=== PATIENT | male | born 1990 | race Caucasian/White ===

== ENCOUNTER 2018-08-14 06:13 | Emergency (ER) | payer BC, MEDICAID ==
[~2018-08-14] VITALS: Ht 175.3 cm; Wt 65.8 kg
--- NOTE | 2018-08-14 06:35 | NUR ---
Dr. Priest at bedside for MSE.
--- NOTE | 2018-08-14 07:41 | NUR ---
Patient discharged to home in stable conditon. Written and verbal after care instructions given. Patient verbalizes understanding of instructions.pt walks in steady gait. right knee johanna wrapped per pt request and md marquez. hospital breakfast tray provided.
[2018-08-14 07:42] VITALS: BP 131/89
== END 2018-08-14 07:43 | disposition home or self-care (01) ==
LOC: ER 06:15
DX: M25.561 Pain in right knee (principal); F17.290 Nicotine dependence, other tobacco product, uncomplicated
CPT/HCPCS: A4663

== ENCOUNTER 2020-11-30 01:55 | Inpatient (IN) | payer BC, OTHER ==
[~2020-11-30] VITALS: Ht 177.8 cm; Wt 81.6 kg
--- NOTE | 2020-11-30 02:10 | NUR ---
Dr. Pagan at bedside for MSE.
[2020-11-30] MEDS ORDERED: ACETAMINOPHEN ES 500 MG TABLET PO ONE (02:15)
[2020-11-30] MEDS ORDERED: IV NS 1000 ML 1,000 ML IV ONE (02:15)
[2020-11-30] MEDS ORDERED: VANCOMYCIN 1G/D5W 200 ML PIGGYBACK IV ONE (02:15)
--- NOTE | 2020-11-30 02:23 | NUR ---
Xray at bedside.
[2020-11-30] MEDS ORDERED: ACETAMINOPHEN ES 500 MG TABLET ONE (02:31)
[2020-11-30] MEDS ORDERED: VANCOMYCIN IV 200 ML ONE (02:31)
[2020-11-30 03:07] LABS: BASOPHILS % (AUTO) 0.4 % (0.0-2.0); EOSINOPHILS % (AUTO) 0.3 % (0.0-7.0); HEMATOCRIT 44.2 % (36.7-47.1); HEMOGLOBIN 15.3 g/dL (12.5-16.3); LYMPHOCYTES # (AUTO) 1.3 K/uL (20.0-40.0); LYMPHOCYTES % (AUTO) 13.9 % (20.5-51.5); MEAN CORPUSCULAR HEMOGLOBIN 32.1 uug (23.8-33.4); MEAN CORPUSCULAR HGB CONC 35 g/dL (32.5-36.3); MEAN CORPUSCULAR VOLUME 92.7 fL (73.0-96.2); MONOCYTES # (AUTO) 0.9 K/uL (2.0-10.0); MONOCYTES % (AUTO) 9.3 % (0.0-11.0); NEUTROPHILS # (AUTO) 7.2 K/uL (1.8-8.9); NEUTROPHILS % (AUTO) 76.1 % (38.5-71.5); PLATELET COUNT (AUTO) 207 K/uL (152-348); RED BLOOD CELL COUNT(AUTO) 4.77 MIL/uL (4.06-5.63); WHITE BLOOD COUNT (AUTO) 9.4 K/uL (3.6-10.2)
[2020-11-30 03:11] LABS: POTASSIUM 3.7 mmol/L (3.5-5.1)
[2020-11-30 03:17] LABS: BILIRUBIN,DIRECT 0.1 mg/dL (0.0-0.2); BILIRUBIN,TOTAL 0.4 mg/dL (0.2-1.0); TOTAL PROTEIN, SERUM 7.2 g/dL (6.4-8.2)
[2020-11-30 04:51] LABS: *BLOOD, URINE NEGATIVE (NEGATIVE); *CLARITY,URINE CLEAR (CLEAR); *COLOR,URINE YELLOW (YELLOW); *KETONES,URINE 1+ (NEGATIVE); LEUKOCYTE ESTERASE ,URINE NEGATIVE (NEGATIVE); NITRITE, URINE NEGATIVE (NEGATIVE); PH,URINE 8.5 (5.0-8.0); UGLUCOSE NEGATIVE (NEGATIVE)
[2020-11-30 04:54] LABS: *BILIRUBIN,URIN 1+ (NEGATIVE)
[2020-11-30 04:59] LABS: BACTERIA,URINE NONE SEEN /HPF (NONE SEEN); CALCIUM OXALATE CRYSTALS,UR FEW /HPF (NONE SEEN); MUCUS,URINE FEW /LPF (0-FEW); RBC,URINE 0-3 /HPF (0-3); SQUAMOUS EPITHELIAL CELL,UR FEW /HPF (NONE SEEN); URINE AMORPHOUS PHOSPHATES FEW /HPF
[2020-11-30 05:06] LABS: *AMPHETAMINE, URINE POSITIVE (NEGATIVE); *CANNABINOID, URINE POSITIVE (NEGATIVE); *COCCAINE, URINE NEGATIVE (NEGATIVE); *OPIATE, URINE POSITIVE (NEGATIVE); *PHENCYCLIDINE SCREEN,URINE NEGATIVE (NEGATIVE)
[2020-11-30] MEDS ORDERED: IBUPROFEN 600 MG TABLET ONE (05:08)
--- NOTE | 2020-11-30 05:14 | NUR ---
Called [facility] to esvin Coombs NP.
[2020-11-30] MEDS ORDERED: LORAZEPAM 2 MG/1 ML VIAL IV ONE (05:15)
--- NOTE | 2020-11-30 05:23 | NUR ---
Dr. Pagna on panel call with Ford Coombs NP. [facility], diagnosis: celulitis, meth toxicity.
[2020-11-30] MEDS ORDERED: HYDROCODONE/APAP 5-325MG TABLET PO PRN (05:30)
[2020-11-30] MEDS ORDERED: MAGNESIUM HYDROXIDE 30 ML LIQUID UDC PO PRN (05:30)
[2020-11-30] MEDS ORDERED: IBUPROFEN 600 MG TABLET PO ONE (05:30)
[2020-11-30] MEDS ORDERED: ONDANSETRON 4 MG/2 ML VIAL IV PRN (05:30)
[2020-11-30] MEDS ORDERED: ACETAMINOPHEN 325 MG TABLET PO PRN (05:30)
[2020-11-30] MEDS ORDERED: IV NORMAL SALINE 1000 ML BAG IV ONE (05:30)
--- NOTE | 2020-11-30 05:40 | NUR ---
Report given to Carlie KO Tele.
--- NOTE | 2020-11-30 06:50 | NUR ---
pt on the floor @6:36 via gurney. Admitted to TELE under the care of Dr. Coombs admitting Dx: tachycardia, methamphetamine/heroin abuse/ cellulites of both upper and lower extremities. No acute distress noted at this time. VSS. Oriented pt to the unit. Needs attended too. Photos taken of skin issues and placed in chart. Belonging list completed and placed in chart. Safety measures in place. Will endorse report to oncoming nurse.
[2020-11-30 08:00] VITALS: BP 136/80
--- NOTE | 2020-11-30 08:30 | NUR ---
Received patient in bed, alert and oriented x 4, denies of any pain on room air saturating at 95-96% . Left forearm IV site was accidentally pulled out by the patient. Staff tried to start a new IV line but was unsuccessful. Notify Charge nurse and nurse washing and screening plant supervisor if we can start a midline. Patient is also notified and agree to that. Will monitor.
[2020-11-30] MEDS ORDERED: VANCOMYCIN IV 1,500 MG in IV DEXTROSE 5% 500 ML IV SCH (11:00)
[2020-11-30] MEDS: IV NS 1000 ML 1,000 ML IV PRN ×2 (11:09→18:25)
[2020-11-30 11:53] VITALS: BP 166/97
--- NOTE | 2020-11-30 12:54 | NUR ---
WOUND CARE CONSUULT: PT PRESENTS WITH RED AREAS TO ARMS AND HANDS WELL BLISTERS/WOUNDS TO RT LOWER LEG AND RT GREAT TOE, PRESENT ON ADMISSION. RECOMMEND DPM CONSULT. DR COVARRUBIAS NOTIFIED OF CONSULT REQUEST. MD IN AGREEMENT WITH PLAN OF CARE. PT STATES WANTS TO WEAR A DIAPER BUT SEEMS TO BE CONTINENT AND AMBULATES TO BATHROOM INDEPENDENTLY. MD IN AGREEMENT WITH PLAN OF CARE.
[2020-11-30] MEDS ORDERED: LIDOCAINE HCL 2% 20 ML VIAL IJ ONE (13:45)
[2020-11-30] MEDS: NICOTINE 21 MG/24HR PATCH TD SCH (15:12)
--- NOTE | 2020-11-30 15:54 | NUR ---
Area Operations Manager Consultation: Area Operations Manager consultation completed for substance abuse. This DATA CONTROL ASSISTANT met with the patient in his hospital room. Patient is a 30 year old male, alert, oriented x 4, receptive to speaking with this SW. Patient stated he came to the ED early this morning for rashes and fever, dx of cellulitis. Patient reports living with his brother in [place] (address is correct on the face sheet), independent with ADLs. Patient reports substance abuse history since being a teenager, including use of heroin, methamphetamines, and cigarettes. Patient stated he smokes about 1 pack of cigarettes per day. Patient reported being sober from drug use for 1 year (patient marked his 1 year sobriety on October 16, 2020), but then relapsed in mid-October and began using heroin and methamphetamines again. Patient reports using heroin on a daily basis, and meth about 2 x week. Patient reports his last use of heroin was a few hours before coming to the hospital. Patient discussed some of the external factors that contributed to his relapse, however stated he wasn't sure if using drugs was what he wanted to continue to do. SW assessed patient's plans for treatment, and patient stated that he had been in treatment before and was living in sober living before moving in with his brother, but patient stated he wasn't sure what decision he wanted to make next. SW offered to provide patient with resources on substance abuse treatment programs, but patient stated he knew of several programs he could contact and declined additional resources. SW assessed for additional psychosocial needs, and patient stated that at this time he had the support of his father and brother and did not feel he needed any additional resources. Discharge plans discussed, and patient to return to his brothers home after this hospitalization. No further SS interventions needed at this time, however SW will remain available, as needed.
[2020-11-30 16:00] VITALS: BP 148/93
--- NOTE | 2020-11-30 16:23 | NUR ---
IV Vancomycin started at 1530 via left upper arm midline . Pharmacy made aware. Wound culture collected and send to lab per Dr. Mtz. Patient wants to smoke downstairs . Explained to the patient that this is a smoke free facility and offered nicotine patch and patient agree. Nicotine patch order by Alfred Paula and was given. Right lower excisional wound debridement and right great toe nail slant back or partial nail avulsion with local anesthesia done by Dr. Mtz. Patient denies of any pain. All needs met promptly. Notify Engineering dept regarding the call light.
--- NOTE | 2020-11-30 19:38 | NUR ---
Received patient lying in bed. AAOx4. Denies any pain or SOB. In no acute distress. Sinus tachy on tele at 115/min. Midline on right upper arm intact and patent. IVF infusing. Right LLE with dressing intact. Safety measure initiated and call lee within reached.
[2020-11-30 20:00] VITALS: BP 119/87
[2020-11-30] MEDS: LORAZEPAM 2 MG/1 ML VIAL IV PRN (22:11)
[2020-12-01] VITALS: BP 122/84
[2020-12-01] MEDS: VANCOMYCIN IV 1,500 MG in IV DEXTROSE 5% 500 ML IV SCH ×2 (03:18→16:43)
[2020-12-01] MEDS: IV NS 1000 ML 1,000 ML IV PRN ×2 (03:19→19:51)
[2020-12-01 04:00] VITALS: BP 112/25
[2020-12-01 06:00] LABS: BASOPHILS % (AUTO) 0.3 % (0.0-2.0); EOSINOPHILS # (AUTO) 0.2 K/uL (0.0-0.7); EOSINOPHILS % (AUTO) 1.7 % (0.0-7.0); HEMATOCRIT 42.1 % (36.7-47.1); HEMOGLOBIN 14.4 g/dL (12.5-16.3); LYMPHOCYTES # (AUTO) 1.3 K/uL (20.0-40.0); LYMPHOCYTES % (AUTO) 14.3 % (20.5-51.5); MEAN CORPUSCULAR HEMOGLOBIN 31.8 uug (23.8-33.4); MEAN CORPUSCULAR HGB CONC 34 g/dL (32.5-36.3); MEAN CORPUSCULAR VOLUME 93.1 fL (73.0-96.2); MONOCYTES # (AUTO) 0.8 K/uL (2.0-10.0); MONOCYTES % (AUTO) 8.4 % (0.0-11.0); NEUTROPHILS % (AUTO) 75.3 % (38.5-71.5); PLATELET COUNT (AUTO) 208 K/uL (152-348); RED BLOOD CELL COUNT(AUTO) 4.52 MIL/uL (4.06-5.63); WHITE BLOOD COUNT (AUTO) 9.3 K/uL (3.6-10.2)
--- NOTE | 2020-12-01 06:03 | NUR ---
AAOx4. No complain of pain or SOB. Sinus rhythm to sinus tachy on tele between 90'a to 110's/min. Midline on right upper arm remains intact and patent. IVF infusing. No adverse reaction from IV ABX. Right LLE with dressing intact. Needs attended to and met. Safety measure maintained and call lee within reached.
[2020-12-01 06:19] LABS: BILIRUBIN,TOTAL 0.5 mg/dL (0.2-1.0); CREATININE 0.8 mg/dL (0.6-1.3); MAGNESIUM 1.9 mg/dL (1.8-2.4); POTASSIUM 3.3 mmol/L (3.5-5.1); TOTAL PROTEIN, SERUM 6.4 g/dL (6.4-8.2)
--- NOTE | 2020-12-01 07:30 | NUR ---
Received pt coming back from the restroom. Patient is awake. alert and oriented times 4. No sign of distress noted. Pt is on room air. Patient is asking to go out to smoke. Patient teaching done on hospital policy. Safety precautions are in place. Will continue to monitor.
[2020-12-01] MEDS: NICOTINE 21 MG/24HR PATCH TD SCH (08:55)
[2020-12-01] MEDS: SILVER SULFADIAZINE 1% CREAM 50 GM TP SCH (08:56)
[2020-12-01] MEDS ORDERED: POTASSIUM CHLORIDE 20 MEQ TAB.PRT.SR PO ONE (10:00)
[2020-12-01 11:43] VITALS: BP 119/68
[2020-12-01 16:00] VITALS: BP 101/63
--- NOTE | 2020-12-01 18:27 | NUR ---
Patient has been calm and cooperative throughout shift. So sign of distress noted. All medication given as ordered. Safety measures are in place. Will endorse to the oncoming nurse.
[2020-12-01 20:00] VITALS: BP 103/65
[2020-12-01] MEDS: LORAZEPAM 2 MG/1 ML VIAL IV PRN (21:39)
[2020-12-02] VITALS: BP 100/62
[2020-12-02] MEDS: VANCOMYCIN IV 1,500 MG in IV DEXTROSE 5% 500 ML IV SCH (03:39)
[2020-12-02 04:00] VITALS: BP 113/68
[2020-12-02] MEDS: IV NS 1000 ML 1,000 ML IV PRN (06:42)
--- NOTE | 2020-12-02 06:43 | NUR ---
Pt slept throughout the night without complaints. Denies pain or SOB. IV site patent and fluids running Wound dressing done and photos taken. Pt tolerated dressing change well. Vanco trough 10.3. SR on tele. Bed locked and in lowest position, no other issues or concerns at this time. Will endorse to day shift.
--- NOTE | 2020-12-02 07:15 | NUR ---
Patient report received from scene shifter. Patient seen resting in bed. Alert and oriented x 4. Pt on TELE, sinus tach below 110. Comfortable on room air. Able to ambulate. Continent GI/. IV ULI midline. No signs of distress noted. No reports of pain or shortness of breath. Safet precautions in place. Call light with in reach. Will continue to monitor.
[2020-12-02 08:00] VITALS: BP 107/59
[2020-12-02] MEDS: NICOTINE 21 MG/24HR PATCH TD SCH (09:00)
--- NOTE | 2020-12-02 09:46 | NUR ---
Received call from Ida at [facility] [place], pt noted with mrsa on right leg. ZACHARY Mann made aware.
[2020-12-02] MEDS: SILVER SULFADIAZINE 1% CREAM 50 GM TP SCH (09:47)
[2020-12-02] MEDS ORDERED: SILV50CR32 TP (11:37)
[2020-12-02] MEDS ORDERED: SULF1TAB48 PO (11:37)
[2020-12-02 12:28] VITALS: BP 98/61
[2020-12-02] MEDS ORDERED: VANCOMYCIN IV 1,500 MG in IV DEXTROSE 5% 500 ML IV SCH (13:00)
[2020-12-02 16:08] VITALS: BP 114/70
--- NOTE | 2020-12-02 17:47 | NUR ---
Per Lillie PAUL no home health available to visit the patient at this time. She will send patient's info to a HH but might not be able to get return call until tomorrow morning. Patient is willing to learn how to change his wound dressings after dinner. Parents at bedside and made aware.
--- NOTE | 2020-12-02 18:58 | NUR ---
Patient was taught on how to do wound care. Dressing on big toe and right leg done with patient's cooperation. He was able to do the dressing on right leg. Emphasized to wash hands properly before changing dressings. Also emphasized not soaking affected leg in bath. Per HOT MILL WORKER Mackenzie earlier ok to shower however don't soak the wounds. Patient verbalized understanding and was able to do return demonstration. Encouraged questions but he said he's ok and is comfortable with wound care. Also provided patient with copy of the wound care order. Encouraged the patient to change dressings daily and as needed if soiled, he said he will. Informed to follow MD order and continue antibiotic per order. Patient was also provided with some supplies. Family was at bedside and was aware. Patient is eager to go home. Will endorse accordingly.
--- NOTE | 2020-12-02 19:56 | NUR ---
Pt D/C on 12/02/20 at 1947H. All belongings accounted for. Midline removed. Pt given discharge instructions and discharge packet. Pt wheeled out by this nurse accompanied by patient's parents. Pt left in stable condition. No other issues or concerns.
== END 2020-12-02 20:16 | disposition home or self-care (01) | DRG 571 ==
LOC: ER 02:02 → TELE3 06:27 → MEDSURG3 12-02 12:03
PROVIDERS: ATTEND Nurse Practitioner Acute Care
PROC: 05H533Z Insertion of Infusion Device into Right Subclavian Vein, Percutaneous Approach (ICD-10-PCS; principal; 2020-11-30)
PROC: 0JBN0ZZ Excision of Right Lower Leg Subcutaneous Tissue and Fascia, Open Approach (ICD-10-PCS; 2020-11-30)
PROC: 0HDRXZZ Extraction of Toe Nail, External Approach (ICD-10-PCS; 2020-11-30)
PROC: B546ZZA Ultrasonography of Right Subclavian Vein, Guidance (ICD-10-PCS; 2020-11-30)
DX: L03.115 Cellulitis of right lower limb (principal); L03.113 Cellulitis of right upper limb; F17.210 Nicotine dependence, cigarettes, uncomplicated; L03.031 Cellulitis of right toe; Z20.822 Contact with and (suspected) exposure to COVID-19; L60.0 Ingrowing nail; S80.821A Blister (nonthermal), right lower leg, initial encounter; X58.XXXA Exposure to other specified factors, initial encounter; Y92.89 Other specified places as the place of occurrence of the external cause; Z59.0 Homelessness; F15.10 Other stimulant abuse, uncomplicated; F11.10 Opioid abuse, uncomplicated; F12.10 Cannabis abuse, uncomplicated
CPT/HCPCS: 36415; 71045; 83605; 83735; 84100; 85025; 87040; 87070; 87077; 87086; 93005; A4217; A9150; G0378; J2060; J3370; J3490; J7030; J7060

== ENCOUNTER 2020-12-21 15:36 | Emergency (ER) | payer BC, OTHER ==
[~2020-12-21] VITALS: Ht 177.8 cm; Wt 72.6 kg
[~2020-12-21 15:36] MED LIST: SILV50CR32 TP; SULF1TAB48 PO
--- NOTE | 2020-12-21 18:13 | NUR ---
Dr Pagan at bedside for MSE.
[2020-12-21 18:23] VITALS: BP 115/80
--- NOTE | 2020-12-21 18:23 | NUR ---
Pt has been cleared for DC by Dr. Pagan. Written and verbal after care instructions given. Patient verbalizes understanding of instructions. Stressed follow up or return to ER for worsening s/s. Patient discharged to home in stable condition. Ambulated out of ED in steady gait.
== END 2020-12-21 18:25 | disposition home or self-care (01) ==
LOC: ER 15:36
DX: L02.91 Cutaneous abscess, unspecified (principal)
CPT/HCPCS: A4663

== ENCOUNTER 2021-01-23 19:46 | Emergency (ER) | payer BC, OTHER ==
[~2021-01-23] VITALS: Ht 177.8 cm; Wt 68.0 kg
[2021-01-23] MEDS ORDERED: CEPH250C PO (21:44)
--- NOTE | 2021-01-23 21:47 | NUR ---
Patient discharged to home in stable condition. Written and verbal after care instructions given. Patient verbalizes understanding of instructions. Stressed follow up or return to ER for worsening s/s.
== END 2021-01-23 21:47 | disposition home or self-care (01) ==
LOC: ER 19:51
DX: L03.115 Cellulitis of right lower limb (principal); F15.10 Other stimulant abuse, uncomplicated; F11.10 Opioid abuse, uncomplicated; F17.200 Nicotine dependence, unspecified, uncomplicated
CPT/HCPCS: A4663

== ENCOUNTER 2021-02-24 04:47 | Emergency (ER) | payer BC, OTHER ==
[~2021-02-24] VITALS: Ht 177.8 cm; Wt 68.0 kg
[~2021-02-24 04:47] MED LIST changes: +CEPH250C PO
--- NOTE | 2021-02-24 04:51 | NUR ---
pt. c/o abscess on right thigh for several weeks. Pt. reports he uses iv drugs, has had similar abscesses in the past. Pt. also reports he is homeless. Pt. offered meal, clothes and transportation. Pt. declined the clothing and transportation.
--- NOTE | 2021-02-24 05:00 | NUR ---
Dr. Ramachandran at bedside for mse.
[2021-02-24] MEDS ORDERED: LIDOCAINE HCL 1% 20 ML VIAL ONE (05:13)
[2021-02-24] MEDS ORDERED: CEFTRIAXONE 1 G VIAL ONE (05:13)
[2021-02-24] MEDS ORDERED: SULFAMETH/TRIMETH 800/160 MG TABLET ONE (05:13)
[2021-02-24] MEDS ORDERED: SULFAMETH/TRIMETH 800/160 MG TABLET PO ONE (05:15)
[2021-02-24] MEDS ORDERED: CEFTRIAXONE 1 G VIAL IM ONE (05:15)
[2021-02-24] MEDS ORDERED: CEPH500C2 PO (05:16)
[2021-02-24] MEDS ORDERED: SULF1TAB48 PO (05:16)
--- NOTE | 2021-02-24 05:22 | NUR ---
Patient discharged to home in stable condition. Written and verbal after care instructions given. Patient verbalizes understanding of instructions. Stressed follow up or return to ER for worsening s/s. Patient out of ER with steady gait, no acute signs of distress, VSS, all belongings taken.
[2021-02-24 05:23] VITALS: BP 117/85
== END 2021-02-24 05:20 | disposition home or self-care (01) ==
LOC: ER 04:50
DX: L98.9 Disorder of the skin and subcutaneous tissue, unspecified (principal); F15.10 Other stimulant abuse, uncomplicated; Z86.14 Personal history of Methicillin resistant Staphylococcus aureus infection; Z59.0 Homelessness; F17.210 Nicotine dependence, cigarettes, uncomplicated
CPT/HCPCS: 96372; 99283; 99406; J0696; J3490; A4663

== ENCOUNTER 2021-04-03 21:14 | Emergency (ER) | payer BC, OTHER ==
[~2021-04-03] VITALS: Ht 177.8 cm; Wt 65.8 kg
[~2021-04-03 21:14] MED LIST changes: +CEPH500C2 PO
--- NOTE | 2021-04-03 21:28 | NUR ---
PT AMBULATED TO ER WITH C/O ABSCESS TO RT BUTTOCK AND BILAT ARMS. A/O X4, NO SOB OR LABORED BREATHING, AFEBRILE. DR. PIZARRO AT BEDSIDE, MSE IN PROGRESS.
[2021-04-03] MEDS ORDERED: SULFAMETH/TRIMETH 800/160 MG TABLET PO ONE (21:30)
[2021-04-03] MEDS ORDERED: SULF1TAB48 PO (21:32)
[2021-04-03] MEDS ORDERED: SULFAMETH/TRIMETH 800/160 MG TABLET ONE (21:40)
== END 2021-04-03 21:37 | disposition home or self-care (01) ==
LOC: ER 21:16
DX: L03.90 Cellulitis, unspecified (principal); F19.10 Other psychoactive substance abuse, uncomplicated; Z86.14 Personal history of Methicillin resistant Staphylococcus aureus infection
CPT/HCPCS: A4663

== ENCOUNTER 2021-05-01 16:58 | Emergency (ER) | payer BC, OTHER ==
[~2021-05-01] VITALS: Ht 177.8 cm; Wt 63.5 kg
--- NOTE | 2021-05-01 17:10 | NUR ---
CALLED FOR PT, NOT IN THE WAITING ROOM OR OUTSIDE THE DOOR.
[2021-05-01] MEDS ORDERED: IBUP-1955 PO (18:54)
[2021-05-01] MEDS ORDERED: CLIN300C12 PO (18:54)
[2021-05-01] MEDS ORDERED: CLINDAMYCIN HCL 150 MG CAPSULE PO ONE (19:00)
[2021-05-01] MEDS ORDERED: CLINDAMYCIN HCL 150 MG CAPSULE ONE (19:06)
== END 2021-05-01 19:03 | disposition home or self-care (01) ==
LOC: ER 17:02
DX: L03.114 Cellulitis of left upper limb (principal); Z86.14 Personal history of Methicillin resistant Staphylococcus aureus infection; R00.0 Tachycardia, unspecified; F11.10 Opioid abuse, uncomplicated; F15.10 Other stimulant abuse, uncomplicated
CPT/HCPCS: A4663

== ENCOUNTER 2021-05-17 01:46 | Emergency (ER) | payer BC, OTHER ==
[~2021-05-17] VITALS: Ht 177.8 cm; Wt 63.5 kg
[~2021-05-17 01:46] MED LIST changes: +CLIN300C12 PO; +IBUP-1955 PO
--- NOTE | 2021-05-17 02:44 | NUR ---
Dr. Lopez at bedside for MSE.
[2021-05-17 03:15] LABS: MEAN CORPUSCULAR HEMOGLOBIN 30.8 uug (23.8-33.4); MEAN CORPUSCULAR VOLUME 89.2 fL (73.0-96.2); PLATELET COUNT (AUTO) 218 K/uL (152-348)
[2021-05-17 03:18] LABS: CREATININE 0.8 mg/dL (0.6-1.3); POTASSIUM 3.8 mmol/L (3.5-5.1)
--- NOTE | 2021-05-17 04:27 | NUR ---
Patient discharged to home in stable condition. Written and verbal after care instructions given. Patient verbalizes understanding of instructions. Stressed follow up or return to ER for worsening s/s. Patient out of ER with steady gait, VSS, all belongings taken, all belongings taken.
[2021-05-17 04:28] VITALS: BP 143/98
== END 2021-05-17 04:28 | disposition home or self-care (01) ==
LOC: ER 01:48
DX: S41.132S Puncture wound without foreign body of left upper arm, sequela (principal); S40.022S Contusion of left upper arm, sequela; X78.8XXS Intentional self-harm by other sharp object, sequela; F11.90 Opioid use, unspecified, uncomplicated; R00.0 Tachycardia, unspecified; Z86.14 Personal history of Methicillin resistant Staphylococcus aureus infection; F15.10 Other stimulant abuse, uncomplicated
CPT/HCPCS: 36415; 85025; 85651; 87040; 87070; A4663; J3490

== ENCOUNTER 2021-05-29 22:10 | Emergency (ER) | payer BC, OTHER ==
[~2021-05-29] VITALS: Ht 175.3 cm; Wt 61.2 kg
--- NOTE | 2021-05-29 23:30 | NUR ---
PT AMBULATED TO ER C/O RT UPPER EXTREMITY ABCESS.
--- NOTE | 2021-05-29 23:40 | NUR ---
DR. MALDONADO AT BEDSIDE, MSE IN PROGRESS.
[2021-05-30] MEDS ORDERED: LIDOCAINE HCL 1% 20 ML VIAL IJ ONE
[2021-05-30] MEDS ORDERED: CLIN300C12 PO (00:54)
--- NOTE | 2021-05-30 01:11 | NUR ---
Patient discharged to home in stable condition. Denies any pain/discomfort upon discharge. Written and verbal after care instructions given. Patient verbalizes understanding of instructions. Stressed follow up or return to ER for worsening s/s.
[2021-05-30 01:12] VITALS: BP 136/77
== END 2021-05-30 01:13 | disposition home or self-care (01) ==
LOC: ER 22:12
DX: L02.414 Cutaneous abscess of left upper limb (principal); S41.132S Puncture wound without foreign body of left upper arm, sequela; X78.8XXS Intentional self-harm by other sharp object, sequela; Z86.14 Personal history of Methicillin resistant Staphylococcus aureus infection; F11.10 Opioid abuse, uncomplicated
CPT/HCPCS: A4663

== ENCOUNTER 2021-06-02 13:25 | Emergency (ER) | payer BC, OTHER ==
[~2021-06-02] VITALS: Ht 172.7 cm; Wt 61.2 kg
[2021-06-02] MEDS ORDERED: NEOMY/BACITRA/POLYMYXIN B OINT UD PACKET TP ONE (13:59)
[2021-06-02] MEDS: NEOMY/BACITRA/POLYMYXIN B OINT UD PACKET TP ONE (14:05)
== END 2021-06-02 14:08 | disposition home or self-care (01) ==
LOC: ER 13:25
DX: Z48.817 Encounter for surgical aftercare following surgery on the skin and subcutaneous tissue (principal); L02.413 Cutaneous abscess of right upper limb
CPT/HCPCS: A4217; A4663

== ENCOUNTER 2021-06-04 12:12 | Emergency (ER) | payer BC, OTHER ==
[~2021-06-04] VITALS: Ht 172.7 cm; Wt 61.2 kg
--- NOTE | 2021-06-04 12:38 | NUR ---
at bedside for assessment
--- NOTE | 2021-06-04 12:41 | NUR ---
Patient has right upper arm abscess that was packed
--- NOTE | 2021-06-04 13:13 | NUR ---
Patient discharged to home in stable condition. Patient instructed to schedule appointment with PCP for another wound check. Patient instructed to return to ER for signs of infection. Written and verbal after care instructions given. Patient verbalizes understanding of instructions. Stressed follow up or return to ER for worsening s/s.
[2021-06-04 13:14] VITALS: BP 116/73
== END 2021-06-04 13:14 | disposition home or self-care (01) ==
LOC: ER 12:12
DX: Z48.817 Encounter for surgical aftercare following surgery on the skin and subcutaneous tissue (principal); L02.413 Cutaneous abscess of right upper limb; F17.210 Nicotine dependence, cigarettes, uncomplicated; Z86.14 Personal history of Methicillin resistant Staphylococcus aureus infection
CPT/HCPCS: A4663

== ENCOUNTER 2021-06-08 22:17 | Emergency (ER) | payer BC, OTHER ==
[~2021-06-08] VITALS: Ht 177.8 cm; Wt 61.2 kg
[2021-06-08] MEDS ORDERED: CEPH500C2 PO (22:54)
[2021-06-08] MEDS ORDERED: SULF1TAB48 PO (22:54)
== END 2021-06-08 23:03 | disposition home or self-care (01) ==
LOC: ER 22:18
DX: Z48.817 Encounter for surgical aftercare following surgery on the skin and subcutaneous tissue (principal); L02.91 Cutaneous abscess, unspecified
CPT/HCPCS: A4663

== ENCOUNTER 2021-06-13 11:15 | Emergency (ER) | payer BC, OTHER ==
[~2021-06-13] VITALS: Ht 177.8 cm; Wt 63.5 kg
[2021-06-13] MEDS ORDERED: SULF1TAB47 PO (11:48)
[2021-06-13] MEDS ORDERED: CEPH500C2 PO (11:48)
--- NOTE | 2021-06-13 11:55 | NUR ---
Gave pt RX, homeless packet, and d/c instructions, pt verbalized understanding. Also gave pt several clean band-Aids.
== END 2021-06-13 11:58 | disposition home or self-care (01) ==
LOC: ER 11:15
DX: L02.416 Cutaneous abscess of left lower limb (principal); L02.415 Cutaneous abscess of right lower limb; L02.413 Cutaneous abscess of right upper limb; S71.132S Puncture wound without foreign body, left thigh, sequela; S71.131S Puncture wound without foreign body, right thigh, sequela; S41.131S Puncture wound without foreign body of right upper arm, sequela; X78.8XXS Intentional self-harm by other sharp object, sequela; F11.10 Opioid abuse, uncomplicated; F15.10 Other stimulant abuse, uncomplicated
CPT/HCPCS: A4663

== ENCOUNTER 2021-08-20 22:39 | Emergency (ER) | payer SELFPAY ==
[~2021-08-20 22:39] MED LIST changes: +SULF1TAB47 PO
--- NOTE | 2021-08-21 01:37 | NUR ---
Pt not in waiting room.
[2021-08-21] MEDS ORDERED: SULF1TAB48 PO (09:55)
[2021-08-21] MEDS ORDERED: CEPH500C2 PO (09:55)
== END 2021-08-21 01:40 | disposition left against medical advice (07) ==
LOC: ER 23:04
DX: Z53.21 Procedure and treatment not carried out due to patient leaving prior to being seen by health care provider (principal)

== ENCOUNTER 2021-08-21 04:54 | Emergency (ER) | payer BC, OTHER ==
[~2021-08-21] VITALS: Ht 177.8 cm; Wt 59.0 kg
--- NOTE | 2021-08-21 06:24 | NUR ---
DR. SANDOVAL AT BEDSIDE, MSE IN PROGRESS.
[2021-08-21] MEDS ORDERED: SULF1TAB48 PO (09:55)
[2021-08-21] MEDS ORDERED: CEPH500C2 PO (09:55)
[2021-08-21] MEDS ORDERED: SULFAMETH/TRIMETH 800/160 MG TABLET PO ONE ×2 (10:00)
--- NOTE | 2021-08-21 10:06 | NUR ---
PT WAS EVALUATED BY DR MICHAEL. PT WAS D/C'd TO HOME. D/C INSTRUCTIONS GIVEN TO THE PT BY DR MICHAEL.
[2021-08-21 10:07] VITALS: BP 135/72
[2021-08-21] MEDS ORDERED: SULFAMETH/TRIMETH 800/160 MG TABLET ONE (10:10)
== END 2021-08-21 10:30 | disposition home or self-care (01) ==
LOC: ER 04:56
DX: L02.31 Cutaneous abscess of buttock (principal); S31.813S Puncture wound without foreign body of right buttock, sequela; X78.8XXS Intentional self-harm by other sharp object, sequela; Z59.02 Unsheltered homelessness; F17.210 Nicotine dependence, cigarettes, uncomplicated; Z86.14 Personal history of Methicillin resistant Staphylococcus aureus infection; F11.20 Opioid dependence, uncomplicated; T79.7XXS Traumatic subcutaneous emphysema, sequela
CPT/HCPCS: 72192; A4663

== ENCOUNTER 2021-10-16 02:01 | Emergency (ER) | payer BC, OTHER ==
[~2021-10-16] VITALS: Ht 175.3 cm; Wt 59.0 kg
--- NOTE | 2021-10-16 02:40 | NUR ---
Dr. Ramachandran at bedside for MSE.
[2021-10-16] MEDS ORDERED: CEFTRIAXONE 1 G VIAL IM ONE (02:45)
[2021-10-16] MEDS ORDERED: SULFAMETH/TRIMETH 800/160 MG TABLET PO ONE (02:45)
[2021-10-16] MEDS ORDERED: SULF1TAB48 PO (02:52)
[2021-10-16] MEDS ORDERED: CEPH500T PO (02:52)
[2021-10-16] MEDS ORDERED: CEFTRIAXONE 1 G VIAL ONE (02:57)
[2021-10-16] MEDS ORDERED: SULFAMETH/TRIMETH 800/160 MG TABLET ONE (02:58)
--- NOTE | 2021-10-16 04:09 | NUR ---
Patient given written and verbal discharge instructions. Patient verbalizes understanding of instructions. Patient is ambulatory with steady gait. Refuses offer of [facility] placement. Patient given list of available shelters in surrounding area. Pt provided with copies of lab result, no acute signs of distress, VSS, all belongings taken, refused all other services at this time.
[2021-10-16 04:12] VITALS: BP 127/67
== END 2021-10-16 04:12 | disposition home or self-care (01) ==
LOC: ER 02:04
DX: R05.9 Cough, unspecified (principal); Z20.822 Contact with and (suspected) exposure to COVID-19; L03.114 Cellulitis of left upper limb; X58.XXXA Exposure to other specified factors, initial encounter; S60.812A Abrasion of left wrist, initial encounter; Y92.89 Other specified places as the place of occurrence of the external cause; F17.210 Nicotine dependence, cigarettes, uncomplicated; J02.9 Acute pharyngitis, unspecified; R91.8 Other nonspecific abnormal finding of lung field; Z59.00 Homelessness unspecified; Z86.14 Personal history of Methicillin resistant Staphylococcus aureus infection; F15.10 Other stimulant abuse, uncomplicated; F11.10 Opioid abuse, uncomplicated
CPT/HCPCS: 71045; 87426; 96372; 99283; 99406; J0696; A4663

== ENCOUNTER 2021-11-21 01:33 | Emergency (ER) | payer BC, OTHER ==
[~2021-11-21] VITALS: Ht 175.3 cm; Wt 63.5 kg
[~2021-11-21 01:33] MED LIST changes: +CEPH500T PO
--- NOTE | 2021-11-21 01:56 | NUR ---
: MEGHAN AT B/S EXAMINED PATIENT .
[2021-11-21] MEDS ORDERED: CEPH500C2 PO (01:59)
[2021-11-21] MEDS ORDERED: SULF1TAB48 PO (01:59)
[2021-11-21] MEDS ORDERED: SULFAMETH/TRIMETH 800/160 MG TABLET PO ONE (02:00)
[2021-11-21] MEDS ORDERED: CEphaleXIN 500 MG CAPSULE PO ONE (02:00)
[2021-11-21] MEDS ORDERED: CEphaleXIN 500 MG CAPSULE ONE (02:04)
[2021-11-21] MEDS ORDERED: SULFAMETH/TRIMETH 800/160 MG TABLET ONE (02:04)
--- NOTE | 2021-11-21 02:05 | NUR ---
DUE MEDICATION BACTRIM AND KEFLEX GIVEN PATIENT TOLERATED MEDICATION WITH WATER .
--- NOTE | 2021-11-21 02:15 | NUR ---
Patient given written and verbal discharge instructions. Patient verbalizes understanding of instructions. Patient is ambulatory with steady gait. Refuses offer of prison placement. Patient given list of available shelters in surrounding area.WENT HOME WITH ALL BELONGINGS. AMBULATORY .
--- NOTE | 2021-11-21 02:15 | NUR ---
HOMELESS PATIENT WAIVER FORM SIGNED BY PATIENT .
[2021-11-21 02:26] VITALS: BP 125/90
== END 2021-11-21 02:29 | disposition home or self-care (01) ==
LOC: ER 01:34
DX: L02.416 Cutaneous abscess of left lower limb (principal); Z59.00 Homelessness unspecified; F17.210 Nicotine dependence, cigarettes, uncomplicated; Z86.14 Personal history of Methicillin resistant Staphylococcus aureus infection
CPT/HCPCS: A4663

== ENCOUNTER 2022-01-06 01:00 | Emergency (ER) | payer BC, OTHER ==
[~2022-01-06] VITALS: Ht 167.6 cm; Wt 65.8 kg
--- NOTE | 2022-01-06 02:10 | NUR ---
After patient was triaged patient was sent back to waiting room to wait for bed availability in the ER.
--- NOTE | 2022-01-06 04:00 | NUR ---
Patient walked into ER c/o left upper arm "redness and swelling" after IV drug use 2 days ago
[2022-01-06] MEDS ORDERED: IBUP-1955 PO (06:35)
[2022-01-06] MEDS ORDERED: SULF1TAB48 PO (06:35)
--- NOTE | 2022-01-06 06:42 | NUR ---
Patient discharged to home in stable condition. Written and verbal after care instructions given. Patient verbalizes understanding of instructions. Stressed follow up or return to ER for worsening s/s. Patient is a/ox4, not in distress.
[2022-01-06 06:43] VITALS: BP 128/75
== END 2022-01-06 06:44 | disposition home or self-care (01) ==
LOC: ER 01:03
DX: L03.114 Cellulitis of left upper limb (principal); I80.8 Phlebitis and thrombophlebitis of other sites; F17.210 Nicotine dependence, cigarettes, uncomplicated; Z59.00 Homelessness unspecified; Z79.1 Long term (current) use of non-steroidal anti-inflammatories (NSAID); Z79.2 Long term (current) use of antibiotics; Z79.899 Other long term (current) drug therapy
CPT/HCPCS: A4663

== ENCOUNTER 2022-04-14 06:03 | Emergency (ER) | payer BC, OTHER ==
[~2022-04-14] VITALS: Ht 175.3 cm; Wt 61.2 kg
--- NOTE | 2022-04-14 06:27 | NUR ---
pt in room 4a says has red infected area on thigh. says he shot up heroin.
--- NOTE | 2022-04-14 06:56 | NUR ---
Jesús Cano at bedside for MSE.
[2022-04-14] MEDS ORDERED: CLIN300C12 PO (07:00)
--- NOTE | 2022-04-14 07:32 | NUR ---
MD has cleared pt for DC to home/with meds. Patient discharged to home in stable condition. Written and verbal after care instructions given. All new prescriptions explained. Patient verbalizes understanding of instructions. Stressed follow up or return to ER for worsening s/s. Pt ambulated out of ED in steady gait.
[2022-04-14 07:41] VITALS: BP 130/90
== END 2022-04-14 07:57 | disposition home or self-care (01) ==
LOC: ER 06:08
DX: L03.116 Cellulitis of left lower limb (principal); F17.210 Nicotine dependence, cigarettes, uncomplicated; Z86.14 Personal history of Methicillin resistant Staphylococcus aureus infection; F15.90 Other stimulant use, unspecified, uncomplicated; F11.90 Opioid use, unspecified, uncomplicated
CPT/HCPCS: A4663

== ENCOUNTER → 2022-10-25 | Emergency (ER) | payer BC, OTHER | END | disposition left against medical advice (07) | LOC: ER 16:54 | DX: Z53.21 Procedure and treatment not carried out due to patient leaving prior to being seen by health care provider (principal) ==

== ENCOUNTER 2023-07-04 09:45 | Emergency (ER) | payer BC, MEDICAID ==
[~2023-07-04] VITALS: Ht 177.8 cm; Wt 74.8 kg
[2023-07-04] MEDS ORDERED: PERM60CR4 TP (09:54)
[2023-07-04 10:08] VITALS: BP 136/77; O2SAT 99
== END 2023-07-04 10:05 | disposition home or self-care (01) ==
LOC: ER 09:45
DX: B85.0 Pediculosis due to Pediculus humanus capitis (principal); F17.210 Nicotine dependence, cigarettes, uncomplicated; Z79.1 Long term (current) use of non-steroidal anti-inflammatories (NSAID); Z79.2 Long term (current) use of antibiotics; Z79.899 Other long term (current) drug therapy
CPT/HCPCS: A4606; A4663